=== PATIENT | female | born 1950 | race Caucasian/White ===

== ENCOUNTER 2016-09-17 10:11 | Outpatient (CLI) | payer MEDICARE ==
[2016-09-17 10:50] LABS: #Basophils 0.1 thou/uL (0.0-0.2); #Eosinphils 0.2 thou/uL (0.0-0.7); #Lymphocytes 1.3 thou/uL (1.20-3.40); #Monocytes 0.6 thou/uL (0.11-0.59); #Neutrophils 3.9 thou/uL (1.40-6.50); %Monocytes 10.1 % (0.0-10.0); Hematocrit 44.9 % (36.0-47.0); Mean Platelet Volume 8.5 fL (7.4-10.4); Red Blood Cell (RBC) Count 4.84 mill/uL (4.20-5.40)
[2016-09-17 11:01] LABS: ALT (SGPT) 15 U/L (0-55); AST (SGOT) 16 U/L (5-34); Alkaline Phosphatase 93 U/L (40-150); Anion Gap 14 mmol/L (10-20); BUN (Urea Nitrogen) 16 mg/dL (9.8-20.1); Bilirubin, Total 0.3 mg/dL (0.2-1.2); Calc. Creatinine Clearance 0 mL/min (70-130); Calcium 9.5 mg/dL (7.8-10.44); Carbon Dioxide 27 mmol/L (23-31); Chloride 104 mmol/L (98-107); Estimated GFR-MDRD 60; Globulin 3.4 g/dL (2.4-3.5); LDL Cholesterol, Calculated 140 mg/dL; Protein, Total 7.7 g/dL (5.8-8.1)
== END 2016-09-17 10:12 ==
LOC: HPCALD 10:11
PROVIDERS: ATTEND Family Medicine
DX: I10 Essential (primary) hypertension (principal)
CPT/HCPCS: 36415; 80053; 80061; 84443; 85025